=== PATIENT | female | born 1985 | race Caucasian/White ===

== ENCOUNTER 2019-05-01 23:54 | Emergency (ER) | payer MEDICAID ==
[~2019-05-01] VITALS: Ht 160 cm; Wt 58.5 kg
[2019-05-01 23:58] VITALS: Ht 160 cm; Wt 58.5 kg
[2019-05-02 03:41] VITALS: BP 105/60
== END 2019-05-02 03:41 | disposition home or self-care (01) ==
LOC: ED 23:54
DX: K64.8 Other hemorrhoids (principal)

== ENCOUNTER 2019-09-28 23:11 | Emergency (ER) | payer MEDICAID ==
[~2019-09-28] VITALS: Ht 160 cm; Wt 59.0 kg
[2019-09-28 23:35] VITALS: Ht 160 cm; Wt 59.0 kg
[2019-09-29 01:45] VITALS: BP 95/70
== END 2019-09-29 01:45 | disposition home or self-care (01) ==
LOC: ED 23:11
DX: R07.89 Other chest pain (principal); R05 Cough; Z20.828 Contact with and (suspected) exposure to other viral communicable diseases
CPT/HCPCS: U0003-CS